=== PATIENT | female | born 1985 | race Caucasian/White ===

== ENCOUNTER 2020-09-29 06:54 | Outpatient (NON) | payer MEDICARE, SELFPAY ==
[2020-09-29 23:28] LABS: SARS-CoV-2 RNA PCR Negative
== END 2020-09-29 06:55 ==
PROVIDERS: PCP Family Medicine; Visit Provider Family Medicine
DX: Z20.822 Contact with and (suspected) exposure to COVID-19 (principal)
CPT/HCPCS: C9803; U0003

== ENCOUNTER 2021-10-10 08:09 | Emergency (ER) | payer MEDICARE, SELFPAY ==
--- NOTE | 2021-10-10 08:13 | ED.URI ---
HPI - URI/Sore Throat General Chief Complaint: Upper Respiratory Infection Stated Complaint: Headache and ear pain Time Seen by Provider: 10/10/21 08:32 Source: patient and RN notes reviewed Mode of arrival: ambulatory Limitations: no limitations History of Present Illness HPI Narrative: 36-year-old female presents with concern for left ear pain, sinus pain that started yesterday. She denies any purulent drainage, drainage from the ear. Reports pain kept her awake last night. Reports she tried Aleve without relief. She denies cough, shortness of breath, body aches, chills, sweats, fever. Reports headache and decreased appetite. Reports fatigue. MD elicited complaint: other (Ear pain, sinus pain) Related Data Allergies Allergy/AdvReac Type Severity Reaction Status Date / Time Sulfa (Sulfonamide Allergy Unknown Rash Verified 10/10/21 08:50 Antibiotics) tetracycline Allergy Unknown Rash Verified 10/10/21 08:50 Review of Systems Review of Systems: CONSTITUTIONAL: Denies malaise, chills, sweats, or fever. EYES: Denies visual changes, redness, or discharge. ENT: Reports rhinorrhea, congestion, and sore throat. Reports left ear pain and sinus CARDIOVASCULAR: Denies chest pain, palpitations, or edema. RESPIRATORY: Denies cough. Denies dyspnea. GASTROINTESTINAL: Denies abdominal pain, nausea, vomiting, diarrhea SKIN: Denies rash or itching. MUSCULOSKELETAL: Denies myalgia. NEUROLOGIC: Denies headache. All systems reviewed & are unremarkable except as noted in HPI and below PMFSH Past Medical History Medical History (Updated 10/10/21 @ 08:49 by Anisa Huynh NP) Anxiety Deafness Bilateral deafness, right cochlear implant Depression Eczema depression Previous known suicide attempt Skin problem History of cellulitis Surgical History Surgical History (Updated 08/31/19 @ 08:56 by ANTOINE John) History of orthopedic surgery Left elbow Family History Family History (Updated 08/31/19 @ 08:56 by ANTOINE John) Mother Hypertension Father Migraines Comments At time of signature, agree with nursing past medical, surgical, social and family history. There is no relevant family history pertinent to the presenting complaint Exam Narrative: GENERAL: Well-appearing, well-nourished, and in no acute distress. HEAD: Normocephalic EYES: PERRLA, conjunctivae clear ENT: Nares clear. Mucous membranes moist. TM pearly jansen with sharp light reflex bilaterally; no tragal tenderness. Oropharynx not erythematous without lesions. Tonsils not enlarged and without exudate, no drooling, no hoarseness, no trismus, uvula midline. NECK: Supple. No lymphadenopathy CHEST: Clear to auscultation, breath sounds equal. No wheezing, rhonchi, rales, or stridor. No respiratory distress, speaks in full sentences. HEART: Regular rate and rhythm. No murmur heard. SKIN: Warm, dry, no rash. NEURO: Alert and oriented x3. PSYCH: Normal mood and affect Course Course Emergency Course: Patient is aware of diagnosis, understands and agrees to treatment plan. Anticipatory guidance given. Patient agrees to follow-up as directed and is aware of reasons to seek care at the emergency department. Portions of this record may have been created with voice recognition software Level of Care: Express Care Visit Vital Signs Vital signs: Vital Signs Temperature 98.4 F 10/10/21 08:17 Pulse Rate 82 10/10/21 08:17 Respiratory Rate 16 10/10/21 08:17 Blood Pressure 145/91 H 10/10/21 08:17 Pulse Oximetry 100 10/10/21 08:17 Temperature 98.4 F 10/10/21 08:17 Pulse Rate 82 10/10/21 08:17 Respiratory Rate 16 10/10/21 08:17 Blood Pressure 145/91 H 10/10/21 08:17 Pulse Oximetry 100 10/10/21 08:17 Reviewed. MDM - URI/Sore Throat MDM Narrative Medical decision making narrative: Differential diagnosis considered: Crowe virus, strep pharyngitis, allergic rhinitis, upper respiratory tract infection, sinus
[2021-10-10 08:17] VITALS: BP 145/91; PULSE 82; RESP 16; TEMP 36.9; O2SAT 100
[2021-10-11 21:11] LABS: SARS-CoV-2 RNA PCR Negative
== END 2021-10-10 08:58 | disposition home or self-care (01) ==
PROVIDERS: Emergency Provider Nurse Practitioner
DX: H92.02 Otalgia, left ear (principal); Z20.822 Contact with and (suspected) exposure to COVID-19; H91.93 Unspecified hearing loss, bilateral; Z96.21 Cochlear implant status
CPT/HCPCS: 87426; 99213; C9803; G0463; U0003; U0005

== ENCOUNTER 2021-11-27 08:02 | Emergency (ER) | payer MEDICARE, SELFPAY ==
--- NOTE | 2021-11-27 08:05 | ED.URI ---
HPI - URI/Sore Throat General Chief Complaint: Upper Respiratory Infection Stated Complaint: Sore Throat Time Seen by Provider: 11/27/21 08:05 Source: patient Mode of arrival: ambulatory Limitations: no limitations History of Present Illness HPI Narrative: Ms. Mckee is a 36-year-old female patient presenting to the clinic today with complaints of sore throat and runny nose and 1 day. She denies any fever chills. Reports that the left side of her throat feels like a razor blade is cutting her when she swallows. Denies any known exposure to anybody with Covid or influenza. Has not taken anything [id number] to treat her symptoms. MD elicited complaint: sore throat and nasal congestion Related Data Allergies Allergy/AdvReac Type Severity Reaction Status Date / Time Sulfa (Sulfonamide Allergy Unknown Rash Verified 11/27/21 08:14 Antibiotics) tetracycline Allergy Unknown Rash Verified 11/27/21 08:14 Review of Systems Review of Systems: Pertinent positives per HPI. Patient denies any fever, chills, rash, headache, visual changes, dizziness, shortness of breath, chest pain, palpitations, nausea, vomiting, diarrhea, constipation, abdominal pain, or any urinary issues. [facility] Past Medical History Medical History Anxiety Deafness Bilateral deafness, right cochlear implant Depression Eczema depression Previous known suicide attempt Skin problem History of cellulitis Surgical History Surgical History History of orthopedic surgery Left elbow Family History Family History Mother Hypertension Father Migraines Comments At the time of my signature, I reviewed and agree with the nursing past medical, surgical, social, and family history. There is no relevant family history pertinent to the patient complaint. Exam Narrative: General: Well-developed, well nourished, in no apparent distress Head: Normocephalic, atraumatic Eyes: Pupils equally round and reactive to light bilaterally, EOM intact, sclera and conjunctive clear, no discharge, lids normal Ears: TMs intact and clear, ear canals clear, no drainage, grossly hearing normal. Nose: Nares patent, clear nasal discharge, no inflammation, no sinus tenderness. Mouth: Oral pharynx without lesions or masses, good dentition, MMM. Postnasal drip, enlargement of right tonsil without exudate. Neck: Supple, trachea midline, no enlargement of anterior or posterior cervical nodes, no thyroid masses or goiter palpable. Cardio: Regular rate and rhythm, s1 and s2 normal, no murmur appreciated. Resp: Clear to auscultation bilaterally, no rhonchi, rales, wheezing or rubs Course Course Emergency Course: Portions of this record may have been created with voice recognition software. Level of Care: Express Care Visit Vital Signs Vital signs: Vital signs reviewed MDM - URI/Sore Throat MDM Narrative Medical decision making narrative: Strep screen completed to rule out strep. Strep screen was negative in the clinic will send for culture this appears to be a upper respiratory infection as symptoms have only been going on for 1 day. We will have her follow-up with her PCP in 3 to 5 days if symptoms persist. She may return to the [facility] or go to the ER if symptoms worsen. Differential Diagnosis Differential diagnosis: Likely sinusitis, viral infection, bronchitis, influenza and pharyngitis Discharge Plan Discharge Clinical Impression: PND (post-nasal drip) Upper respiratory infection Qualifiers: URI type: unspecified viral URI Qualified Code(s): J06.9 - Acute upper respiratory infection, unspecified Patient Disposition: Home, Self-Care Condition: Stable Instructions: Cold Symptoms (ED), Postnasal Drip (DC) Additional Instructions: Strep screen negative in
[2021-11-27 08:08] VITALS: BP 134/94; PULSE 87; RESP 16; TEMP 36.4; O2SAT 100
== END 2021-11-27 08:30 | disposition home or self-care (01) ==
PROVIDERS: Emergency Provider Nurse Practitioner Family
DX: R09.82 Postnasal drip (principal); J06.9 Acute upper respiratory infection, unspecified; H91.93 Unspecified hearing loss, bilateral; Z96.21 Cochlear implant status
CPT/HCPCS: 87081; 87880; 99213; G0463

== ENCOUNTER 2022-05-26 10:08 | Emergency (ER) | payer MEDICARE, SELFPAY ==
--- NOTE | 2022-05-26 10:10 | ED.SKABFB ---
HPI - Skin/Abscess/Foreign Bdy General Stated complaint: Vein popping out of left knee area Time Seen by Provider: 05/26/22 10:09 Source: patient Mode of arrival: ambulatory Limitations: no limitations History of Present Illness HPI narrative: Ms. Chaidez is a 37-year-old female patient presenting to the clinic today with complaints of a vein popping out of her left knee. She reports she first noticed this yesterday. States her fianc? was concerned so she came in to be evaluated. She denies any pain or leg swelling. Related Data Home Medications Medication Instructions Recorded Confirmed vit no.95-ferrous 1 tablet PO DAILY 05/26/22 05/26/22 fumarate 28 mg-folic acid 800 mcg tablet () Allergies Allergy/AdvReac Type Severity Reaction Status Date / Time Sulfa (Sulfonamide Allergy Unknown Rash Verified 05/26/22 10:17 Antibiotics) tetracycline Allergy Unknown Rash Verified 05/26/22 10:17 Review of Systems Review of Systems: Pertinent positives per HPI. Patient denies any fever, chills, rash, headache, visual changes, dizziness, cough, runny nose, sore throat, shortness of breath, chest pain, palpitations, nausea, vomiting, diarrhea, constipation, abdominal pain, or any urinary issues. [facility] Past Medical History Medical History Anxiety Deafness Bilateral deafness, right cochlear implant Depression Eczema depression Previous known suicide attempt Skin problem History of cellulitis Surgical History Surgical History History of orthopedic surgery Left elbow Family History Family History Mother Hypertension Father Migraines Comments At the time of my signature, I reviewed and agree with the nursing past medical, surgical, social, and family history. There is no relevant family history pertinent to the patient complaint. Exam Narrative: General: Well-developed, well nourished, in no apparent distress Head: Normocephalic, atraumatic. Cardio: Regular rate and rhythm, s1 and s2 normal, no murmur appreciated. Resp: Clear to auscultation bilaterally, no rhonchi, rales, wheezing or rubs. Integumentary: [place], warm, and dry, intact without lesion, no bilateral lower extremity edema, superficial varicose vein to the anterior knee that is palpable without pain, no redness or swelling, no sign of superficial DVT or venous stasis Course Course Emergency Course: Portions of this record may have been created with voice recognition software. Level of Care: Express Care Visit Vital Signs Vital signs: Vital signs reviewed MDM - Skin/Abscess/Foreign Bdy MDM Narrative Medical decision making narrative: At the time of visit patient is resting comfortably on exam table. Differential Diagnosis Differential diagnosis: Likely other (Varicose vein, superficial DVT/thrombophlebitis, venous insufficiency) Discharge Plan Discharge Clinical Impression: Varicose vein of leg Patient Disposition: Home, Self-Care Condition: Stable Instructions: Antibiotic Form Additional Instructions: This appears to be a varicose vein without sign of phlebitis or superficial blood clot Observe area for any changes Follow-up with your PCP as needed Follow-up/Referrals: UNKNOWN,DOCTOR [Non-Staff] - Time of Disposition: 10:22 Quality NIHSS Nursing Documentation ED NIHSS nursing documentation: reviewed/agree
[2022-05-26 10:13] VITALS: BP 131/80; PULSE 83; RESP 16; TEMP 36.6; O2SAT 100
[2022-05-26 10:20] VITALS: BP 131/80; PULSE 83; RESP 16; TEMP 36.6; O2SAT 100
== END 2022-05-26 10:25 | disposition home or self-care (01) ==
PROVIDERS: Emergency Provider Nurse Practitioner Family
DX: I83.92 Asymptomatic varicose veins of left lower extremity (principal); H91.93 Unspecified hearing loss, bilateral
CPT/HCPCS: 99211; G0463

== ENCOUNTER 2022-08-23 16:27 | Emergency (ER) | payer MEDICARE, SELFPAY ==
[2022-08-23 16:32] VITALS: BP 124/91; PULSE 81; RESP 16; TEMP 36.6; O2SAT 100
--- NOTE | 2022-08-23 19:08 | ED.URI ---
HPI - URI/Sore Throat General Chief Complaint: Upper Respiratory Infection Stated Complaint: cough sore chest headache Time Seen by Provider: 08/23/22 19:15 History of Present Illness HPI Narrative: DayQuil and NyQuil since Friday cough did have flu flu shot and also COVID shot reports that cough is loose at times MD elicited complaint: cough Related Data Allergies Allergy/AdvReac Type Severity Reaction Status Date / Time Sulfa (Sulfonamide Allergy Unknown Rash Verified 08/23/22 17:56 Antibiotics) tetracycline Allergy Unknown Rash Verified 08/23/22 17:56 [facility] Past Medical History Medical History Anxiety Deafness Bilateral deafness, right cochlear implant Depression Eczema depression Previous known suicide attempt Skin problem History of cellulitis Surgical History Surgical History History of orthopedic surgery Left elbow Family History Family History Mother Hypertension Father Migraines Course Vital Signs Vital signs: Vital Signs Temperature 36.6 C 08/23/22 16:32 Pulse Rate 81 08/23/22 16:32 Respiratory Rate 16 08/23/22 16:32 Blood Pressure 124/91 H 08/23/22 16:32 Pulse Oximetry 100 08/23/22 16:32 Oxygen Delivery Room Air 08/23/22 16:32 Temperature 36.6 C 08/23/22 16:32 Pulse Rate 81 08/23/22 16:32 Respiratory Rate 16 08/23/22 16:32 Blood Pressure 124/91 H 08/23/22 16:32 Pulse Oximetry 100 08/23/22 16:32 Oxygen Delivery Room Air 08/23/22 16:32 MDM - URI/Sore Throat Lab Data Labs: Influenza A Screen Positive Reference Range: Negative Influenza B Screen Negative Reference Range: Negative Discharge Plan Discharge Clinical Impression: Influenza A Patient Disposition: Home, Self-Care Condition: Stable Instructions: Influenza (ED) Additional Instructions: Increase fluids especially juices and water [id number] cough and cold medicine of your choice for your symptoms Zyrtec Claritin or Tita daily may also include Mucinex to keep secretions thin Cough tablets as directed for cough--do not bite, chew or suck on--swallow whole Tylenol or ibuprofen for any fever pain Steroids as directed--take with food heat to the face 20-30 minutes 4-6 times a day for pain Salt water gargles, throat lozenges or throat sprays as desired Antibiotic as directed--finished the medication If your symptoms persist, change or worsen significantly before you can contact your personal physician then please, without delay, go to the emergency department for further evaluation. Follow-up with PCP in 7-10 days or sooner if needed Follow up with PCP soon in regards to your blood pressure which is elevated above threshold for referral. Blood pressure above 120/80 may indicate pre-hypertension. Blood pressure is 124/90 Prescriptions: New prednisone 10 mg tablet 10 mg PO DAILY Qty: 21 0RF Rx Instructions: Six tabs day 1, 5 tabs day 2,4 tabs D3, 3 cap day 4, 2 tabs day 5, 1 tab day 6 Follow-up/Referrals: PHYSICIAN NOT ON STAFF,NONSTAFF [Primary Care Provider] - Time of Disposition: 19:21 Quality [place] Coma Scale Eyes: Open Verbal: Oriented and Alert Motor: Follows Commands [place] Total Score: 15
--- NOTE | 2022-08-23 19:14 | ED.URI ---
HPI - URI/Sore Throat General Chief Complaint: Upper Respiratory Infection Stated Complaint: cough sore chest headache Time Seen by Provider: 08/23/22 19:15 Source: patient Mode of arrival: ambulatory Limitations: no limitations History of Present Illness HPI Narrative: 37-year-old female who presents to [facility] care with complaints of dry cough, occasional loose, fatigue, chest soreness from cough, and headache. Patient reports that she has had COVID vaccinations and influenza shot. Patient states that she has been taking DayQuil and NyQuil for her symptoms. Patient saw ENT last week and she is scheduled for Tonsillectomy in September. MD elicited complaint: cough and sore throat Treatments prior to arrival: other (DayQuil and NyQuil) Related Data Allergies Allergy/AdvReac Type Severity Reaction Status Date / Time Sulfa (Sulfonamide Allergy Unknown Rash Verified 08/23/22 17:56 Antibiotics) tetracycline Allergy Unknown Rash Verified 08/23/22 17:56 Review of Systems Review of Systems: CONSTITUTIONAL: Denies malaise, chills, sweats, or fever. EYES: Denies visual changes, redness, or discharge. ENT: Reports rhinorrhea, congestion, sinus pain, no otalgia no sore throat. CARDIOVASCULAR: Denies chest pain, palpitations, or edema. RESPIRATORY: Reports cough.? Denies dyspnea.chest is sore from frequent cough GASTROINTESTINAL: Denies abdominal pain, nausea, vomiting, diarrhea SKIN: Denies rash or itching. MUSCULOSKELETAL: Denies myalgia. NEUROLOGIC: Reports headache. All systems reviewed & are unremarkable except as noted in HPI and below PMFSH Past Medical History Medical History Anxiety Deafness Bilateral deafness, right cochlear implant Depression Eczema depression Previous known suicide attempt Skin problem History of cellulitis Surgical History Surgical History History of orthopedic surgery Left elbow Family History Family History Mother Hypertension Father Migraines Social History Social History (Updated 08/27/22 @ 11:34 by Brenda Soria NP) Smoking status: Never smoker Alcohol intake: unknown Substance use type: does not use Gender identity (if verbalized by the patient): Female Comments At time of signature, agree with nursing past medical, surgical, social and family history. There is no relevant family history pertinent to the presenting complaint Exam Narrative: GENERAL: Well-appearing, well-nourished, and in no acute distress. HEAD: Normocephalic EYES: PERRLA, conjunctivae clear ENT: Nares clear, turbinates edematous and erythematous, clear discharge. Mucous membranes moist. TM pearly jansen with dull light reflex bilaterally; no tragal tenderness. Oropharynx erythematous without lesions. Tonsils are enlarged and without exudate, no drooling, no hoarseness, no trismus, uvula midline.some post nasal drainage. NECK: Supple. No lymphadenopathy CHEST: Clear to auscultation, breath sounds equal. No wheezing, rhonchi, rales, or stridor. No respiratory distress, speaks in full sentences.cough, SAO2 100% on room air HEART: Regular rate and rhythm. No murmur heard. SKIN: Warm, dry, no rash. NEURO: Alert and oriented x3. PSYCH: Normal mood and affect Course Course Emergency Course: Patient is aware of diagnosis, understands and agrees to treatment plan.? Anticipatory guidance given.? Patient agrees to follow-up as directed and is aware of reasons to seek care at the emergency department. Portions of this record may have been created with voice recognition software Level of Care: Express Care Visit Vital Signs Vital signs: Vital Signs Temperature 36.6 C 08/23/22 16:32 Pulse Rate 81 08/23/22 16:32 Respiratory Rate 16 08/23/22 16:32 Blood Pressure 124
== END 2022-08-23 19:32 | disposition home or self-care (01) ==
PROVIDERS: Emergency Provider Registered Nurse
DX: J10.1 Influenza due to other identified influenza virus with other respiratory manifestations (principal)
CPT/HCPCS: 87804; 99213; G0463